=== PATIENT | male | born 1995 | race Caucasian/White ===

== ENCOUNTER 2021-07-03 14:26 | Emergency (ER) | payer OTHER ==
[~2021-07-03] VITALS: Ht 177.8 cm; Wt 95.0 kg
[2021-07-03] MEDS ORDERED: IBUPROFEN 800 MG TABLET PO ONE (15:00)
[2021-07-03] MEDS ORDERED: BACITRACIN 0.9 GM PACKET OINTMENT TP ONE (15:45)
[2021-07-03 16:58] VITALS: BP 129/75
== END 2021-07-03 17:13 | disposition home or self-care (01) ==
LOC: EMS 14:33
DX: S92.352A Displaced fracture of fifth metatarsal bone, left foot, initial encounter for closed fracture (principal); L03.115 Cellulitis of right lower limb; F17.210 Nicotine dependence, cigarettes, uncomplicated; X50.1XXA Overexertion from prolonged static or awkward postures, initial encounter; Y93.89 Activity, other specified; Y92.89 Other specified places as the place of occurrence of the external cause; Y99.8 Other external cause status
CPT/HCPCS: 29580; 99284

== ENCOUNTER 2021-08-16 21:13 | Emergency (ER) | payer OTHER ==
[~2021-08-16] VITALS: Ht 177.8 cm; Wt 90.9 kg
[2021-08-16 21:49] VITALS: BP 155/77
[2021-08-16] MEDS ORDERED: SULFAMETHOX/TRIMETH DS 800-160 MG/TABLET PO ONE (22:30)
== END 2021-08-16 22:53 | disposition home or self-care (01) ==
LOC: EMS 21:19
DX: L02.414 Cutaneous abscess of left upper limb (principal); F17.210 Nicotine dependence, cigarettes, uncomplicated; F19.90 Other psychoactive substance use, unspecified, uncomplicated
CPT/HCPCS: 99283

== ENCOUNTER 2021-09-14 20:45 | Emergency (ER) | payer OTHER ==
[~2021-09-14] VITALS: Ht 177.8 cm; Wt 101.4 kg
[2021-09-15 00:43] LABS: BASOPHILS % (AUTO) 0.6 % (0.0-2.0); EOSINOPHILS % (AUTO) 3.3 % (1.0-6.0); HEMATOCRIT 43.2 % (41-53); HEMOGLOBIN 14.6 g/dL (13.5-17.5); LYMPHOCYTES # (AUTO) 2.7 K/uL (1.0-4.8); LYMPHOCYTES % (AUTO) 32.5 % (22.0-44.0); MEAN CORPUSCULAR HEMOGLOBIN 27.4 pg (26.0-34.0); MEAN CORPUSCULAR HGB CONC 33.9 G/dL (31.0-37.0); MEAN CORPUSCULAR VOLUME 81 fL (80-100); MONOCYTES # (AUTO) 0.7 K/uL (0.1-1.0); MONOCYTES % (AUTO) 8.8 % (2.0-9.0); NEUTROPHILS # (AUTO) 4.5 K/uL (1.8-7.7); NEUTROPHILS % (AUTO) 54.8 % (40.0-70.0); PLATELET COUNT (AUTO) 324 K/uL (150-450); RED BLOOD CELL COUNT(AUTO) 5.33 MIL/uL (4.50-5.90); RED CELL DISTRIBUTION WIDTH 13.1 % (11.5-14.5)
[2021-09-15 00:47] LABS: ANION GAP 6 mmol/L (8-16); CARBON DIOXIDE 31 mmol/L (22-29); CHLORIDE 103 mmol/L (98-107); CREATININE 0.89 mg/dL (0.60-1.30); GLOMERULAR FILTR. RATE CALC > 60 mL/min (>60); GLUCOSE,RANDOM 90 mg/dL (70-110); SODIUM SERUM 140 mmol/L (136-145); UREA NITROGEN, BLOOD 15 mg/dL (7-18)
[2021-09-15 00:53] LABS: ALANINE AMINOTRANSFERASE 63 U/L (12-78); ALBUMIN 3.6 g/dL (3.4-5.0); ALKALINE PHOSPHATASE 111 U/L (46-116); ASPARTATE AMINOTRANSFERASE 37 U/L (15-37); BILIRUBIN,TOTAL 0.2 mg/dL (0.1-1.0); TOTAL PROTEIN, SERUM 8.5 g/dL (6.4-8.2)
[2021-09-15 00:56] LABS: B-TYPE NATRIURETIC PEPTIDE 352 pg/mL (0-100)
[2021-09-15] MEDS ORDERED: FUROSEMIDE 20 MG TABLET PO ONE (01:30)
[2021-09-15] MEDS ORDERED: PredniSONE 20 MG TABLET PO ONE (01:30)
[2021-09-15 01:32] VITALS: BP 133/83
== END 2021-09-15 02:19 | disposition home or self-care (01) ==
LOC: EMS 20:46
DX: R60.0 Localized edema (principal); F11.90 Opioid use, unspecified, uncomplicated; F15.90 Other stimulant use, unspecified, uncomplicated; F17.290 Nicotine dependence, other tobacco product, uncomplicated
CPT/HCPCS: 36415; 80053; 83880; 85025; 99283; J7512

== ENCOUNTER 2022-03-03 16:28 | Emergency (ER) | payer OTHER ==
[~2022-03-03] VITALS: Ht 177.8 cm; Wt 122.7 kg
[2022-03-03 17:00] VITALS: BP 126/78
[2022-03-03] MEDS ORDERED: DOXY-354 PO (17:31)
== END 2022-03-03 17:44 | disposition home or self-care (01) ==
LOC: EMS 16:37
DX: L02.413 Cutaneous abscess of right upper limb (principal); F17.210 Nicotine dependence, cigarettes, uncomplicated; F15.90 Other stimulant use, unspecified, uncomplicated; F11.90 Opioid use, unspecified, uncomplicated; Z98.890 Other specified postprocedural states
CPT/HCPCS: 99283; Z7502